=== PATIENT | female | born 1975 | race Caucasian/White ===

== ENCOUNTER → 2016-09-25 | Outpatient (CLI) | payer MEDICAID | END | disposition home or self-care (01) | LOC: RAD 16:37 | PROVIDERS: ATTEND Nurse Practitioner Family | DX: M51.26 Other intervertebral disc displacement, lumbar region (principal); M48.06 Spinal stenosis, lumbar region; M47.896 Other spondylosis, lumbar region; M25.78 Osteophyte, vertebrae; M25.48 Effusion, other site | CPT/HCPCS: 72148 ==

== ENCOUNTER → 2017-05-03 | Outpatient (CLI) | payer MEDICAID | END | disposition home or self-care (01) | LOC: CFH 10:34 | PROVIDERS: ATTEND Nurse Practitioner | DX: Z12.31 Encounter for screening mammogram for malignant neoplasm of breast (principal) | CPT/HCPCS: 77063; 77067 ==

== ENCOUNTER → 2017-11-01 | Outpatient (CLI) | payer OTHER | END | disposition home or self-care (01) | LOC: CFH 13:37 | PROVIDERS: ATTEND Registered Nurse Registered Nurse First Assistant | DX: M50.221 Other cervical disc displacement at C4-C5 level (principal); M51.36 Other intervertebral disc degeneration, lumbar region; M48.02 Spinal stenosis, cervical region; M25.78 Osteophyte, vertebrae | CPT/HCPCS: 72141; 72148 ==